=== PATIENT | male | born 1955 | race Caucasian/White ===

== ENCOUNTER 2019-07-16 16:56 | Inpatient (IN) | payer BC ==
[2019-07-16] VITALS (7 sets, daily range): BP systolic 106–142; BP diastolic 78–99
[~2019-07-16] VITALS: Ht 182.9 cm; Wt 98.0 kg
--- NOTE | 2019-07-16 15:35 | NUR ---
RECIEVED PT FROM [facility] DIRECT ADMIT. ORIENTED TO ROOM. ASSESSMENT DONE.
--- NOTE | 2019-07-16 15:45 | NUR ---
CALLED DR. MOON FOR ADMIT ORDERS, AWAITING CALL BACK.
--- NOTE | 2019-07-16 16:10 | NUR ---
CALL DR. MOON AGAIN AWAITING CALL BACK.
--- NOTE | 2019-07-16 16:20 | NUR ---
AFTER SEVERAL CALLS TO DR. MOON, UNABLE TO REACH . [employer] SUPER[employer] CALLED. STATES TO CALL DR. LUX. DR. LUX CALLED, ON HIS WAY. REPORTED THAT HEPARIN HAS BEEN OFF SINCE 1534. WILL GIVE ORDERS WHEN HE GETS HERE.
--- NOTE | 2019-07-16 17:00 | NUR ---
DR. LUX HERE. HISTORY AND PHYSICAL DONE WITH PT. ORDERS GIVEN
--- NOTE | 2019-07-16 17:50 | NUR ---
HEPARIN GTT RESTARTED. FAMILY UPDATED. PT TOLORATING MEAL.
[2019-07-16] MEDS ORDERED: LISINOPRIL2.5 MG PO (20:47)
[2019-07-16] MEDS ORDERED: NORVASC 2.5 MG2.5 M1 PO (20:47)
[2019-07-16] MEDS ORDERED: LIPITOR20 MG PO (20:48)
[2019-07-17] VITALS (19 sets, daily range): BP systolic 96–125; BP diastolic 66–90
[2019-07-17 04:09] LABS: HEMATOCRIT 44.3 % (42.0-52.0); HEMOGLOBIN 14.5 gm/dL (14.0-18.0); MCH 30.8 pg (26.0-34.0); MCHC 32.7 g/dL (28.0-37.0); MCV 94.3 fL (80.0-100.0); RBC 4.7 mil/uL (4.50-6.00); RDW 13.3 % (10.5-14.5); WBC 6.7 thou/uL (4.0-11.0)
[2019-07-17 04:11] LABS: CALCIUM 9.1 mg/dL (8.5-10.1); CREATININE 0.9 mg/dL (0.7-1.3); POTASSIUM 4.2 mmol/L (3.5-5.1)
--- NOTE | 2019-07-17 06:37 | NUR ---
Pt maintaining O2 sat > 95% on 2 L. No SOA, only mild chest tightness. Continuing heparin gtt per protocol.
--- NOTE | 2019-07-17 11:42 | 2DMMODE ---
[facility] [place] [address] 2 D/M-MODE ECHOCARDIOGRAM Name: PAULETTE GOYAL Room #: 242-P [facility] IN .R.#: [id number] Admission: 07/16/19 Attend Phys: Justin Sanchez Discharge: Date of : 57 Report #: [id number] THIS REPORT FOR: //name// APPROVED REPORT Study performed: 07/17/2019 08:25:50 EXAM: Comprehensive 2D, Doppler, and color-flow Echocardiogram Patient Location: ICU Status: routine BSA: 2.10 HR: 94 bpm BP: 101/72 mmHg Rhythm: NSR Other Information Study Quality: Good Indications Pulmonary Embolism 2D Dimensions RVDd: 36.85 mm IVSd: 11.01 (7-11mm) LVDd: 36.23 mm PWd: 9.06 (7-11mm) Ascending Ao: 30.99 (22-36mm) LVDs: 20.54 (25-40mm) Left Atrium: 33.09 (27-40mm) Volumes Left Atrial Volume (Systole) Single Plane 4CH: 24.33 mL Single Plane 2CH: 25.93 mL LA ESV Index: 13.00 mL/m2 Aortic Valve AoV Peak Sherwin.: 1.06 m/s AO Peak Gr.: 4.64 mmHg LVOT Max P.41 mmHg LVOT Max V: 0.78 m/s Mitral Valve IVRT: 148.79 ms Pulmonary Valve PV Peak Sherwin.: 0.60 m/s PV Peak Gr.: 1.46 mmHg [facility] [address] [address] 2 D/M-MODE ECHOCARDIOGRAM Name: JAY JAYPAULETTE R Room #: 242-P [facility] IN R.#: [id number] Admission: 07/16/19 Attend Phys: Justin Sanchez Discharge: Date of : 57 Report #: [id number] Tricuspid Valve RAP Estimate: 15.00 mmHg Left Ventricle The left ventricle is normal size. There is normal LV segmental wall motion. There is normal left ventricular wall thickness. The left ventricular systolic function is normal. The left ventricular ejection fraction is within the normal range. LVEF is 60%. This study is not technically sufficient to allow evaluation of the LV diastolic function. Fused E/A wave. Right Ventricle Right ventricle is mildly dilated. The right ventricular systolic function is hypokinetic Atria The left atrium size is normal. Right atrium is mildly dilated. Aortic Valve The aortic valve is suboptimally visualized, normal by Doppler data. No aortic regurgitation is seen. There is no aortic valvular stenosis. Mitral Valve The mitral valve is normal in structure. Mild mitral regurgitation. No evidence of mitral valve stenosis. Tricuspid Valve The tricuspid valve is normal in structure. Trace to mild tricuspid regurgitation. Unable to estimate pulmonary artery pressure. Pulmonic Valve Pulmonic valve is not well visualized. Mild pulmonic regurgitation. Great Vessels The aortic root is normal in size. The ascending aorta is normal in size. IVC is dilated and collapses <50% with inspiration. Pericardium There is no pericardial effusion. [facility] [address] [place] [address] 2 D/M-MODE ECHOCARDIOGRAM Name: PAULETTE GOYAL Room #: 242-P [facility] IN .R.#: [id number] Admission: 07/16/19 Attend Phys: Justin Sanchez Discharge: Date of : 57 Report #: [id number] <Conclusion> The left ventricular systolic function is normal. There is normal LV segmental wall motion. LVEF is 60%. Right ventricle is mildly dilated and hypokinetic. The aortic valve is suboptimally visualized, normal by Doppler data. No aortic regurgitation or stenosis The mitral valve is normal in structure. Mild mitral regurgitation. Trace to mild tricuspid regurgitation. Unable to estimate pulmonary artery pressure. There is no pericardial effusion. <ELECTRONICALLY SIGNED> By: Andrew Roman MD, FACC 07/17/19 1142 1142 114 Andrew Roman MD, FACC /INF
--- NOTE | 2019-07-17 16:47 | NUR ---
ASSUMED CARE, AWAKE AND ORIENTED. NO COMPLAINTS OF CHEST TIGHTNESS OR SHORTNESS OF BREATH. 2L NC. HEPARIN DRIP AT 13U/KG/HR OR 11.5 CC/HR. PTT THERAPEUTIC AT 69.7. RECHECK IN AM. OOB TO USE URINAL WITH ASSIST. NOT AMBULATING DUE TO PE.
--- NOTE | 2019-07-17 19:39 | NUR ---
ASSUMMED PT CARE AT APPROXIMATELY 1845. PT A&O X4. PT DENIES HAVING CHEST PAIN. PT DENIES HAVING ACUTE PAIN. VITAL SIGNS STABLE. PT COMFORTABLE IN BED. PT DENIES HAVING FURTHER CONCERNS. PT TRANSFERRED FROM ICU.
[2019-07-18 04:39] LABS: HEMATOCRIT 41.4 % (42.0-52.0); HEMOGLOBIN 13.8 gm/dL (14.0-18.0); MCH 31.1 pg (26.0-34.0); MCHC 33.3 g/dL (28.0-37.0); MCV 93.3 fL (80.0-100.0); RBC 4.44 mil/uL (4.50-6.00); RDW 13.5 % (10.5-14.5)
[2019-07-18 04:40] VITALS: BP 113/74
--- NOTE | 2019-07-18 06:26 | NUR ---
ASSUMED PT CARE AROUND 1920. PT WAS IN BED WITH NO C/O PAIN, N/V/D. PT HEPARIN GOING AT 13 UNIT/KG/HR. ADJUSTED RATE TO 11 UNIT/KG/HR PER FLOWSHEET. PT IS STEADY ON FEET AND USES URINAL AND TOILET. PT RESTED THRU NIGHT WITH MINIMAL INTERRUPTIONS OF SLEEP. PT IS PROGRESSING TOWARD POC.
[2019-07-18 07:35] VITALS: BP 110/83
[2019-07-18 11:30] VITALS: BP 124/83
[2019-07-18 15:55] VITALS: BP 114/69
--- NOTE | 2019-07-18 19:56 | NUR ---
ASSUMMED PT CARE AT APPROXIMATELY 0700. PT A&O X4. ASSESSMENT CHARTED. FALL PRECAUTIONS IN PLACE. PT DENIES HAVING CHEST PAIN. PT DENIES HAVING SOB. PT DENIES HAVING ACUTE PAIN. PT AND PT'S FAMILY EDUCATED ABOUT POC. PT AND PT'S FAMILY STATED UNDERSTANDING AND DENIED HAVING FURTHER QUESTIONS. PT ON HEPARIN DRIP. HEPARIN DRIP PROTOCOL FOLLOWED-SEE HEPARIN FLOW SHEET. PT HAD A RUN OF VTACH. DR. EMERSON NOTIFIED. DR. EMERSON STATED TO CONSULT CARDIOLOGY. DR. LAUREANO CONSULTED. DR. LAUREANO NOTIFIED OF EKG RESULTS. DR. LAUREANO STATED NO NEW ORDERS. PT COMFORTABLE IN BED. PT AMBULATING ONLY IN ROOM. PT STEADY WHEN AMBULATING. VITAL SIGNS STABLE. ADDED PT HOME MEDS TO EMAR. PT STATED HE FELT CONSTIPATED. PT RECEIVED MIRALAX. PT DENIES HAVING FURTHER QUESTIONS.
[2019-07-18 20:58] VITALS: BP 110/76
[2019-07-19 04:30] VITALS: BP 122/83
--- NOTE | 2019-07-19 04:37 | NUR ---
NO OVERNIOGHT EVENTS. PT. STILL COMPLAINING OF CONSTIPATION. HAD 1 SMALL BM DURING SHIFT. NO RHYTHM CHANGES THROUGHOUT SHIFT. ASSESSMENT AND VITAL SIGNS CHARTED. CONTINUE TO FOLLOW POC. WILL CONTINUE TO MONITOR.
[2019-07-19 05:32] LABS: HEMATOCRIT 43.1 % (42.0-52.0); HEMOGLOBIN 13.9 gm/dL (14.0-18.0); MCH 30.7 pg (26.0-34.0); MCHC 32.3 g/dL (28.0-37.0); RBC 4.54 mil/uL (4.50-6.00); RDW 13.5 % (10.5-14.5); WBC 5.6 thou/uL (4.0-11.0)
[2019-07-19 07:45] VITALS: BP 113/83
--- NOTE | 2019-07-19 10:18 | EKG ---
[place] [address] [address] [address] ELECTROCARDIOGRAM REPORT Name: PAULETTE GOYAL Room #: 203- ADM IN M.R.#: [id number] Admission: 07/16/19 Attend Phys: Justin Jules Discharge: Date of : 57 Report #: [id number] THIS REPORT FOR: //name// [facility] Test Date: 2019-07-18 Test Time: 17:38:24 Pat Name: PAULETTE GOYAL Department: Room: 203 P Gender: M Grocery Cashier: Tea LI : 1955 Requested By: Andrew Roman Order Number: [id number] MD: Andrew Roman Measurements Intervals [place] Rate: 99 P: 43 OH: 194 QRS: 3 QRSD: 87 T: -12 QT: 335 QTc: 430 Interpretive Statements Sinus rhythm RSR' in V1 or V2, probably normal variant Abnormal T, anterior leads No previous ECG available for comparison Electronically Signed On 07-19-2019 10:18:08 [employer] by Andrew Roman [email or web address] <ELECTRONICALLY SIGNED> By: Andrew Roman MD, [facility] 07/19/19 1018 37 37 Andrew Roman MD, [facility] /EPI
[2019-07-19 11:05] VITALS: BP 105/67
--- NOTE | 2019-07-19 11:06 | HC ---
[facility] [place] [address] CONSULTATION Name: PAULETTE GOYAL Room #: 203-P ADM IN M.R.#: [id number] Admission: 07/16/19 Attend Phys: Justin Jules Discharge: Date of : 57 Report #: [id number] THIS REPORT FOR: //name// CC: FAM unknown Justin Almanzar REASON FOR CONSULTATION: Seven beats of nonsustained VT. HISTORY OF PRESENT ILLNESS: The patient is a 64-year-old gentleman with history of hypertension and dyslipidemia. He presented with the acute onset of shortness of breath. Emergency Room evaluation at [facility] demonstrated extensive bilateral pulmonary emboli with saddle type embolus in the main pulmonary artery extending across the bifurcation. He was transferred to [facility] for further evaluation. Echocardiography on admission or near the time of presentation demonstrated normal left ventricular systolic function with mildly dilated and hypokinetic right ventricle. Pulmonary artery pressure could not be ascertained. He has been on IV heparin. In the setting and while on telemetry, he had 7 beats of nonsustained VT. This was an asymptomatic event. He denies chest pain, pressure or ischemic type symptoms. He denies heart failure symptoms. No history of palpitations, near syncope or syncope. ALLERGIES: There are no known drug allergies. HOME MEDICATIONS: Include lisinopril, atorvastatin and amlodipine. SOCIAL HISTORY: He is . He quit smoking many years ago. FAMILY HISTORY: Unremarkable for clotting problems or pulmonary emboli. His father had history of diabetes and heart failure in his 60s. REVIEW OF SYSTEMS: All systems negative except as that as noted above. PHYSICAL EXAMINATION: GENERAL: A pleasant gentleman who is alert and in no distress. VITAL SIGNS: Blood pressure is 124/80, heart rate of 90 and regular. He is afebrile. HEENT: There are neither xanthelasma, subcutaneous xanthomata, oral mucosal or digital cyanosis or kyphoscoliosis present. CHEST: Clear to auscultation and percussion. CARDIAC: Regular rate and rhythm with normal S1, S2. Pulmonic closure sound is increased in intensity. ABDOMEN: Soft and nontender. EXTREMITIES: Without cyanosis, clubbing or edema. Radial pulses are 2+. NEUROLOGIC: He is alert with a nonfocal exam. [address] [address] CONSULTATION Name: PAULETTE GOYAL Room #: [address] [place] [address] [place] .R.#: [id number] Admission: 07/16/19 Attend Phys: Justin Jules Discharge: Date of : 57 Report #: [id number] DIAGNOSTIC AND LABORATORY DATA: EKG has been ordered, although remains pending. Hemoglobin 13.8. LABORATORY DATA: Sodium 141, potassium 4.2, creatinine 0.9. Lower extremity Dopplers remain pending. IMPRESSION: 1. Nonsustained 7 beats of clinically asymptomatic ventricular tachycardia. 2. Extensive bilateral pulmonary emboli with saddle component, unprovoked. 3. Right heart strain. 4. Hypertension. 5. Dyslipidemia. RECOMMENDATIONS: 1. No specific treatment is needed for this very brief and asymptomatic ventricular dysrhythmia. 2. Consider outpatient stress testing, probably in 3-4 months. We would also perform an outpatient 24-hour Holter monitor to screen for asymptomatic recurrent dysrhythmias. 3. Transition IV heparin to a novel anticoagulant. 4. Hypercoag panel drawn. Thank you for asking me to participate in his care. <ELECTRONICALLY SIGNED> By: Andrew Roman MD, [facility] 07/19/19 1106 [id number] Andrew Roman MD, FAC /nt
[2019-07-19] MEDS ORDERED: DILTIAZEM 24HR180 M1 PO (11:50)
[2019-07-19] MEDS ORDERED: XARELTO15 MG PO (11:50)
--- NOTE | 2019-07-19 13:55 | NUR ---
rec script for xeralto to check coverage. Needed to verify script with RN and phys as quanity not added. Sp with [facility] in [place] who reports 2 copays of $55 as first script 15mg for 21 days and 2 script 20 mg for 2 months. Patient agreeable to $55 copay. Gave patient savings card as well.
[2019-07-19 16:00] VITALS: BP 105/69
[2019-07-19 17:02] VITALS: BP 105/67
--- NOTE | 2019-07-19 17:50 | NUR ---
ASSESSMENT CHARTED. PT ALERT AND ORIENTED. VSS. DENIED HAVING PAIN OR DISCOMFORT. REPORT FEELING BETTER TODAY. SEEN BY DR. EMERSON AND DR. MORALES. ORDERS GIVEN TO DISCHARGE PT TO HOME. HEPARIN DRIP STOPPED AT 1615 PER ORDER. DISCHARGE INSTRUCTIONS GIVEN TO PT. PT VERBERLISED UNDERSTANDING.
== END 2019-07-19 17:40 | disposition home or self-care (01) | DRG 176 ==
LOC: ICU 16:56 → 2N 16:56 → ENTRNSPT 07-19 17:32 → 2N 07-19 17:40
PROVIDERS: Internal Medicine; Internal Medicine Pulmonary Disease; ADMIT Internal Medicine
DX: I26.92 Saddle embolus of pulmonary artery without acute cor pulmonale (principal); D68.59 Other primary thrombophilia; E78.00 Pure hypercholesterolemia, unspecified; I11.9 Hypertensive heart disease without heart failure; R00.0 Tachycardia, unspecified; E78.5 Hyperlipidemia, unspecified; R10.13 Epigastric pain; Z87.891 Personal history of nicotine dependence; Z79.899 Other long term (current) drug therapy
CPT/HCPCS: 10081; 10204